=== PATIENT | male | born 1985 | race Two or more races ===

== ENCOUNTER 2021-06-13 05:49 | Day surgery (SDC) | payer OTHER ==
[2021-06-13] MEDS ORDERED: GABAPENTIN400 MG PO (09:11)
[2021-06-13] MEDS ORDERED: MELOXICAM15 MG PO (09:11)
== END 2021-06-13 13:35 | disposition home or self-care (01) ==
LOC: CIR.AMB 05:49
PROVIDERS: ATTEND Surgery
DX: N47.1 Phimosis (principal); Z20.822 Contact with and (suspected) exposure to COVID-19